=== PATIENT | female | born 1995 | race Caucasian/White ===

== ENCOUNTER 2021-10-11 23:02 | Emergency (ER) | payer MEDICARE, MEDICAID, SELFPAY ==
[2021-10-11 23:06] VITALS: BP 133/76; PULSE 66; RESP 18; TEMP 36.7; O2SAT 99; BMI 23.0
[2021-10-11 23:21] VITALS: BP 133/76; PULSE 72; RESP 17; TEMP 36.8; O2SAT 97
--- NOTE | 2021-10-11 23:35 | XR_ITS ---
PROCEDURE INFORMATION: Exam: XR Left Femur Exam date and time: 10/11/2021 11:35 PM Age: 25 years old Clinical indication: Injury or trauma; Fall; Blunt trauma; Thigh or upper leg; Left; Injury date: 10/09/2021; Additional info: Fall 2 days ago TECHNIQUE: Imaging protocol: XR Left femur. Views: 2 views. COMPARISON: No relevant prior studies available. FINDINGS: Bones/joints: No acute displaced fracture. No dislocation. Soft tissues: Unremarkable. IMPRESSION: No acute findings.
--- NOTE | 2021-10-11 23:35 | XR_ITS ---
PROCEDURE INFORMATION: Exam: XR Right Knee Exam date and time: 10/11/2021 11:35 PM Age: 25 years old Clinical indication: Injury or trauma; Fall; Blunt trauma; Knee; Right; Injury date: 10/09/2021; Additional info: Fall 2 days ago TECHNIQUE: Imaging protocol: XR Right knee. Views: 3 views. COMPARISON: No relevant prior studies available. FINDINGS: Bones/joints: No acute fracture. Possible remote, healed fracture of the fibular neck. No joint effusion. Joint space preserved. Soft tissues: Normal. IMPRESSION: No acute finding.
--- NOTE | 2021-10-11 23:55 | XR_ITS ---
PROCEDURE INFORMATION: Exam: XR Pelvis Exam date and time: 10/11/2021 11:55 PM Age: 25 years old Clinical indication: Injury or trauma; Fall; Blunt trauma (contusions or hematomas); Left; Pelvic region; Injury date: 10/09/2021 TECHNIQUE: Imaging protocol: XR pelvis. Views: 1 or 2 view. COMPARISON: CR XR FEMUR LT 2V 10/11/2021 11:45 PM FINDINGS: Tubes, catheters and devices: Intrauterine device present. Bones/joints: No acute displaced fracture. No dislocation. 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 Nonspecific striated appearance of the pubic symphysis, probably also developmental in nature. Soft tissues: Unremarkable. IMPRESSION: No acute finding.
[2021-10-12] VITALS: BP 127/86; PULSE 78; TEMP 37; O2SAT 98
--- NOTE | 2021-10-12 00:04 | [facility].EDFALL ---
ED Disposition Clinical Impression: Sprain of left hip Qualifiers: Encounter type: initial encounter Qualified Code(s): S73.102A - Unspecified sprain of left hip, initial encounter Thigh contusion Qualifiers: Encounter type: initial encounter Laterality: left Qualified Code(s): S70.12XA - Contusion of left thigh, initial encounter Right knee sprain Qualifiers: Encounter type: initial encounter Involved ligament of knee: unspecified ligament Qualified Code(s): S83.91XA - Sprain of unspecified site of right knee, initial encounter Disposition: Home, Self-Care Condition on Discharge: Good Instructions: DI for Contusion Additional Instructions: wt bearing as maria luisa and see pcp for follow up and use crutches as needed Referrals: Provider,Referral, MD [Primary Care Provider] - - Critical Care Critical Care Time: No Attestation: On 10/11/21, the high probability of a clinically significant, sudden or life threatening deterioration of the following system(s) required my full and direct attention, intervention and personal management. The time I documented below is in addition to time spent performing reported procedures but includes the following listed in this critical care notation. Medical Decision Making - Medical Records Medical records reviewed: Yes: I reviewed the patient's medical records. - Marv Inquiry Pt receiving controlled substance: No Vital Signs: 10/11/21 23:06 10/11/21 23:21 10/12/21 00:00 Temperature 98.1 F 98.2 F 98.6 F Temperature Source Oral Oral Oral Pulse Rate 72 78 Pulse Rate [Apical] 66 Respiratory Rate 18 17 Blood Pressure 133/76 127/86 Blood Pressure [Right Arm] 133/76 Blood Pressure Mean [Right Arm] 95 Blood Pressure Source Automatic Cuff Automatic Cuff Blood Pressure Source [Right Arm] Automatic Cuff Blood Pressure Position Supine Supine Blood Pressure Position [Right Arm] Sitting 02 Sat by Pulse Oximetry 99 97 98 Oxygen Delivery Method Room Air Room Air Room Air 10/12/21 00:31 10/12/21 01:02 Temperature Temperature Source Pulse Rate 76 82 Pulse Rate [Apical] Respiratory Rate Blood Pressure 125/75 127/82 Blood Pressure [Right Arm] Blood Pressure Mean [Right Arm] Blood Pressure Source Automatic Cuff Automatic Cuff Blood Pressure Source [Right Arm] Blood Pressure Position Supine Supine Blood Pressure Position [Right Arm] 02 Sat by Pulse Oximetry 98 94 L Oxygen Delivery Method Room Air Room Air - Lab Data Lab results reviewed: Yes: I reviewed the patient's lab results. - Radiology Data #1 Image(s): Pelvis, Femur, Knee Image Reviewed: Yes I have reviewed radiologist's interpretation Preliminary Findings: No Fracture Seen - CT Data CT Scan: Other (hip) Time Received: 01:[address] Reviewed: Yes: I have viewed the radiologist's interpretation Preliminary Findings: No Fracture Seen Medical Decision Narrative: has no fx but pain will use crutches and advil/tyenol and see pcp Fall HPI - General Chief Complaint: Fall Stated Complaint: AO 2-3 days ago injuryleft upper leg Time Seen by Provider: 10/12/21 00:00 Mode of Arrival: Wheelchair Source of Information: Patient, Medical Record Limitations: Physical Limitations Description of Symptoms (Recalled from ER Triage Doc. by RN): According to mother, two days ago the patient fell in her driveway and injured her right knee and left upper leg. Patient did not inform the mother of the fall. According to mother patient has a history of neurogenic syncope episodes so its not uncommon for her to fall. Patient has been walking on the leg since the fall. Today the patient went on a hike with her family and has since been complaining of left leg pain and told her mother of the fall. Mother wrapped the leg in an leonid wrap and states that there is a dip in the leg. - History of Present Illness HPI Narrative: slip and fall with injury to lt hip and rt knee with ongoing pain and dec wt beari
--- NOTE | 2021-10-12 00:09 | PC.NURSE ---
DR. MANSFIELD IN TO SEE PATIENT.
[2021-10-12 00:31] VITALS: BP 125/75; PULSE 76; O2SAT 98
--- NOTE | 2021-10-12 00:35 | CT_ITS ---
PROCEDURE INFORMATION: Exam: CT Left Lower Extremity Without Contrast, Hip Exam date and time: 10/12/2021 12:35 AM Age: 25 years old Clinical indication: Injury or trauma; Fall; Blunt trauma; Hip; Left; Injury date: 10/09/2021; Additional info: Fall pain left hip TECHNIQUE: Imaging protocol: CT of the Left lower extremity without contrast was performed. Exam focused on the hip. Radiation optimization: All CT scans at this facility use at least one of these dose optimization techniques: automated exposure control; mA and/or kV adjustment per patient size (includes targeted exams where dose is matched to clinical indication); or iterative reconstruction. COMPARISON: CR XR PELVIS 1-2V 10/11/2021 11:49 PM FINDINGS: Bones/joints: No acute fracture. No dislocation. There is residual prominence of the physeal scars throughout the pelvis, atypical, but chronic/developmental in etiology. Soft tissues: Questionable mild contusion in the subcutaneous adipose tissue of the anterolateral mid thigh, not fully visualized. No organized soft tissue hematoma. Mild fat deposition within the proximal rectus femoris muscle compatible with remote injury. Partially visualized intrauterine device. IMPRESSION: 1. No acute fracture. 2. Possible incompletely visualized mild-appearing subcutaneous contusion in the anterolateral mid thigh.
[2021-10-12 01:02] VITALS: BP 127/82; PULSE 82; O2SAT 94
[2021-10-12 01:37] VITALS: BP 121/74; PULSE 80; RESP 18; TEMP 36.8; O2SAT 98
== END 2021-10-12 01:42 | disposition home or self-care (01) ==
PROVIDERS: Emergency Provider Emergency Medicine
DX: S73.102A Unspecified sprain of left hip, initial encounter (principal); S70.12XA Contusion of left thigh, initial encounter; S83.91XA Sprain of unspecified site of right knee, initial encounter; W01.0XXA Fall on same level from slipping, tripping and stumbling without subsequent striking against object, initial encounter; Y92.014 Private driveway to single-family (private) house as the place of occurrence of the external cause
CPT/HCPCS: 72170; 73552; 73562; 73700; 99282

== ENCOUNTER 2022-11-19 15:30 | Outpatient (RCR) | payer MEDICARE, MEDICAID, SELFPAY | END 2022-11-26 13:13 | disposition home or self-care (01) | LOC: PT 15:30 | PROVIDERS: Visit Provider Nurse Practitioner Family | DX: S16.1XXD Strain of muscle, fascia and tendon at neck level, subsequent encounter (principal) | CPT/HCPCS: 97035; 97110; 97140; 97163 ==

== ENCOUNTER 2023-09-07 15:00 | Outpatient (RCR) | payer MEDICARE, MEDICAID, SELFPAY | END 2023-09-13 15:10 | disposition home or self-care (01) | LOC: PT 15:00 | PROVIDERS: Visit Provider Otolaryngology Pediatric Otolaryngology | DX: H90.3 Sensorineural hearing loss, bilateral (principal) | CPT/HCPCS: 97110; 97112; 97163; 97164 ==

== ENCOUNTER 2024-08-05 12:17 | Emergency (ER) | payer MEDICARE, MEDICAID, SELFPAY ==
[2024-08-05 12:38] VITALS: BP 139/79; PULSE 83; RESP 18; TEMP 36.8; O2SAT 99; BMI 27.3
--- NOTE | 2024-08-05 12:58 | ED_ITS ---
Discharge Plan Disposition Patient Disposition: Home, Self-Care Condition: Good Prescriptions Prescriptions: New erythromycin 5 mg/gram (0.5 %) ointment 1 cm ophthalmic (eye) BID 7 Days Qty: 3.5 0RF Rx Instructions: apply to rt eye lid No Action norgestimate-ethinyl estradiol 0.25-35 mg-mcg tablet 0.25 tab PO DAILY montelukast 10 mg tablet 10 mg PO DAILY albuterol sulfate [Ventolin HFA] 90 mcg/actuation HFA aerosol inhaler 90 mcg INHALATION DIRECTED fluticasone furoate-vilanterol [Breo Ellipta] 100-25 mcg/dose blister with device 100 ea INHALATION DIRECTED fluticasone furoate-vilanterol [Breo Ellipta] 100-25 mcg/dose blister with device 100 ea INHALATION DIRECTED Incruse Ellipta 62.5 mcg/actuation blister with device 62.5 mcg INHALATION DIRECTED Gemtesa 75 mg tablet 75 mg PO DAILY Patient Comments: TAKE 1 TABLET BY MOUTH ONCE A DAY Referrals Follow up/Referrals: Robinson Dudley [Primary Care Provider] - See instructions Activity Restrictions/Add. Instructions Additional Instructions/Restrictions: Contact precautions discussed If symptoms worsen or not improved return or see eye doctor Follow-up with PCP Antibiotic as ordered Clinical Impressions Clinical Impression: Conjunctivitis Instructions Patient Instructions: DI for Conjunctivitis Print Language Print Language: Tamazight Discharge ED Provider: Penny ([facility])Stephanie [facility] HPI General Stated complaint: right eye red and swollen Mode of Arrival: Ambulatory Source of Information: Patient and Parent(s) Time Seen by Provider: 08/05/24 12:59 Description of Symptoms (Recalled from Triage Doc. by RN): RIGHT EYE SWOLLEN AND RED HEENT Symptoms (Recalled from RN notes): Yes Resp Symptoms (Recalled from RN notes): No Skin Symptoms (Recalled from RN notes): No MS Symptoms (Recalled from RN notes): No Functional Status (Recalled from RN notes): WNL History of Present Illness Provider Complaint: 28-year-old female presents for redness and drainage to right eye. Patient states when she woke up this morning her eye was crusted over and she has to keep clearing out drainage. No injury noted Related Data Home Medications ?Medication ?Instructions ?Recorded ?Confirmed albuterol sulfate 90 mcg/actuation 90 mcg inhalation DIRECTED 08/05/24 08/05/24 aerosol inhaler (Ventolin HFA) fluticasone furoate 100 100 ea inhalation DIRECTED 08/05/24 08/05/24 mcg-vilanterol 25 mcg/dose inhalation powder (Breo Ellipta) fluticasone furoate 100 100 ea inhalation DIRECTED 08/05/24 08/05/24 mcg-vilanterol 25 mcg/dose inhalation powder (Breo Ellipta) montelukast 10 mg tablet 10 mg PO DAILY 08/05/24 08/05/24 norgestimate 0.25 mg-ethinyl 0.25 tab PO DAILY 08/05/24 08/05/24 estradiol 35 mcg tablet umeclidinium 62.5 mcg/actuation 62.5 mcg inhalation DIRECTED 08/05/24 08/05/24 blister powder for inhalation (Incruse Ellipta) vibegron 75 mg tablet (Gemtesa) 75 mg PO DAILY 08/05/24 08/05/24 Previous Rx's ?Medication ?Instructions ?Recorded erythromycin 5 mg/gram (0.5 %) eye 1 cm ophthalmic (eye) BID 7 days 08/05/24 ointment #3.5 grams Allergies Allergy/AdvReac Type Severity Reaction Status Date / Time clindamycin Allergy Verified 10/11/21 23:24 Worker's Comp Is this a Worker's Comp case?: No [facility] Disclaimer: The information contained in this section may have been updated after the patient was seen, as this information can be updated by other users. 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 Social History , [employer]) Smoking Status: Never smoker alcohol intake: never current occupational status: student Travel in the last 8 weeks: None ROS Obtained: Yes Systems reviewed as appropriate & no additional complaints except as documented Eyes Eyes: Reports system reviewed and no additional complaints, except as documented, Reports as per HPI and Reports eye discharge Physical Exam General General appearance: alert and in no apparent distress Eye Eye exam: Present PERRL, conjunctival redness, conjunctival injection and discharge Respiratory Respiratory exam: Present normal lung sounds bilaterally Cardiovascular Cardiovascular exam: Present regular rate and normal rhythm Neurological Exam Neurological exam: Present alert and oriented X3 Skin Skin exam: Present warm Medical Decision Making Medical Records Medical records reviewed: Yes I reviewed the patient's medical records. Screening: Per USPSTF and CDC recommendations, given the prevalence of disease in our region, it is our hospital?s policy to screen for HIV and viral Hepatitis for all patients aged 18 and over and those with ongoing risk factors. Marv Inquiry Pt receiving controlled substance: No Marv was queried for this patient: No Vital Signs: 08/05/24 12:38 Temperature 98.2 F Temperature Source Oral Pulse Rate [Left Brachial] 83 Respiratory Rate 18 Blood Pressure [Left Arm] 139/79 Blood Pressure Mean [Left Arm] 99 02 Sat by Pulse Oximetry 99
[2024-08-05 13:09] VITALS: BP 139/79; PULSE 83; RESP 20; TEMP 36.8
== END 2024-08-05 13:10 | disposition home or self-care (01) ==
PROVIDERS: Emergency Provider Nurse Practitioner Family; PCP Family Medicine
DX: H10.9 Unspecified conjunctivitis (principal)
CPT/HCPCS: 99213; G0381

== ENCOUNTER 2024-08-06 15:00 | Emergency (ER) | payer MEDICARE, MEDICAID, SELFPAY ==
[2024-08-06 15:01] VITALS: BP 164/77; PULSE 108; RESP 16; TEMP 36.7; O2SAT 96; BMI 28.0
--- NOTE | 2024-08-06 15:02 | ED_ITS ---
Discharge Plan Disposition Patient Disposition: Xfer Short-Term Hosp Condition: Serious Prescriptions Prescriptions: No Action norgestimate-ethinyl estradiol 0.25-35 mg-mcg tablet 0.25 tab PO DAILY montelukast 10 mg tablet 10 mg PO DAILY albuterol sulfate [Ventolin HFA] 90 mcg/actuation HFA aerosol inhaler 90 mcg INHALATION DIRECTED fluticasone furoate-vilanterol [Breo Ellipta] 100-25 mcg/dose blister with device 100 ea INHALATION DIRECTED fluticasone furoate-vilanterol [Breo Ellipta] 100-25 mcg/dose blister with device 100 ea INHALATION DIRECTED Incruse Ellipta 62.5 mcg/actuation blister with device 62.5 mcg INHALATION DIRECTED Gemtesa 75 mg tablet 75 mg PO DAILY Patient Comments: TAKE 1 TABLET BY MOUTH ONCE A DAY erythromycin 5 mg/gram (0.5 %) ointment 1 cm ophthalmic (eye) BID 7 Days Qty: 3.5 0RF Rx Instructions: apply to rt eye lid sulfacetamide sodium 10 % drops 1 drp ophthalmic (eye) Q3H 7 Days Qty: 15 0RF Referrals Follow up/Referrals: Robinson Dudley [Primary Care Provider] - See instructions Activity Restrictions/Add. Instructions Additional Instructions/Restrictions: Patient to be transferred to the [facility] ER care of Dr. Francois Clinical Impressions Clinical Impression: Ankit's angina syndrome Stand Alone Forms Stand Alone Forms: Transfer Record - ED Instructions Patient Instructions: DI for Skin Abscess Print Language Print Language: Sinhala Discharge ED Provider: David Grider General Adult HPI <CHANDU Newsome - Last Filed: 08/06/24 17:32> General Chief complaint: Skin/Abscess/Foreign Body Stated complaint: Allergic reaction Time Seen by Provider: 08/06/24 15:02 History of Present Illness HPI narrative: Patient presents for evaluation of right neck pain. 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 Most recently however she was treated approximately a week ago for a left otitis media and has had good resolution, yesterday she was treated for reported pinkeye and was given a prescription for sulfacetamide eyedrops. This morning mom states that she awoke and her eye appears subjectively better however she is had right facial flushing and a fullness in the right submandibular area that is extraordinarily painful crop up overnight. Patient has trismus but is able to open her mouth, she has no itching no chest pain no shortness of breath no swelling of the mucous membranes. She denies fever chills hemoptysis hematochezia melena hematemesis but reports difficulty with swallowing as it hurts to swallow . Related Data Home Medications ?Medication ?Instructions ?Recorded ?Confirmed albuterol sulfate 90 mcg/actuation 90 mcg inhalation DIRECTED 08/05/24 08/05/24 aerosol inhaler (Ventolin HFA) fluticasone furoate 100 100 ea inhalation DIRECTED 08/05/24 08/05/24 mcg-vilanterol 25 mcg/dose inhalation powder (Breo Ellipta) fluticasone furoate 100 100 ea inhalation DIRECTED 08/05/24 08/05/24 mcg-vilanterol 25 mcg/dose inhalation powder (Breo Ellipta) montelukast 10 mg tablet 10 mg PO DAILY 08/05/24 08/05/24 norgestimate 0.25 mg-ethinyl 0.25 tab PO DAILY 08/05/24 08/05/24 estradiol 35 mcg tablet umeclidinium 62.5 mcg/actuation 62.5 mcg inhalation DIRECTED 08/05/24 08/05/24 blister powder for inhalation (Incruse Ellipta) vibegron 75 mg tablet (Gemtesa) 75 mg PO DAILY 08/05/24 08/05/24 Previous Rx's ?Medication ?Instructions ?Recorded erythromycin 5 mg/gram (0.5 %) eye 1 cm ophthalmic (eye) BID 7 days 08/05/24 ointment #3.5 grams sulfacetamide sodium 10 % eye drops 1 drp ophthalmic (eye) Q3H 7 days 08/05/24 #15 mL Allergies Allergy/AdvReac Type Severity Reaction Status Date / Time amphetamine [From Adderall] Allergy Unknown Verified 08/06/24 17:54 allergy reaction atomoxetine [From Strattera] Allergy Unknown Verified 08/06/24 17:54 allergy reaction azithromycin Allergy Unknown Verified 08/06/24 17:54 allergy reaction clindamycin Allergy Unknown Verified 08/06/24 17:54 allergy reaction dextroamphetamine Allergy Unknown Verified 08/06/24 17:54 [From Adderall] allergy reaction PFSH <Bill Solen, PA - Last Filed: 08/06/24 17:32> [facility] Disclaimer: The information contained in this section may have been updated after the patient was seen, as this information can be updated by other users. Medical History , [employer] ENGINEER) Kabuki syndrome Social History (Updated 08/05/24 @ 13:06 by Stephanie Francis ([facility]), MI[employer]LECTRONICS ENGINEER) Smoking Status: Never smoker alcohol intake: never current occupational status: student Travel in the last 8 weeks: None Other Medical History Have you received the Flu Vaccine for this season: No Have you received the Pneumonia Vaccine: No <CHANDU Newsome - Last Filed: 08/06/24 17:32> ROS Obtained: Yes Systems reviewed as appropriate & no additional complaints except as documented Physical Exam <CHANDU Newsome - Last Filed: 08/06/24 17:32> General General appearance: alert and in no apparent distress Neck Neck exam: Present lymphadenopathy Respiratory Respiratory exam: Present normal lung sounds bilaterally Cardiovascular Cardiovascular exam: Present tachycardia Neurological Exam Neurological exam: Present alert and oriented X3 Medical Decision Making <CHANDU Newsome - Last Filed: 08/06/24 17:32> Medical Records Medical records reviewed: Yes I reviewed the patient's medical records. Screening: Per USPSTF and CDC recommendations, given the prevalence of disease in our region, it is our hospital?s policy to screen for HIV and viral Hepatitis for all patients aged 18 and over and those with ongoing risk factors. Marv Inquiry Pt receiving controlled substance: No Vital Signs: 08/06/24 15:01 08/06/24 15:30 08/06/24 16:00 Temperature 98.1 F Temperature Source Oral Pulse Rate 88 87 Pulse Rate [Radial] 108 H Respiratory Rate 16 Blood Pressure 128/79 122/74 Blood Pressure [Right Arm] 164/77 H Blood Pressure Mean 93 89 Blood Pressure Mean [Right Arm] 106 Blood Pressure Source [Right Arm] Automatic Cuff Blood Pressure Position [Right Arm] Sitting 02 Sat by Pulse Oximetry 96 98 97 Oxygen Delivery Method Room Air Room Air Room Air Lab Data Lab results reviewed: Yes I reviewed the patient's lab results. Lab Results 08/06/24 15:40: WBC 16.1 H, RBC 4.88, Hgb 14.1, Hct 41.2, MCV 84.4, MCH 29.0, MCHC 34.3, RDW 14.5, Plt Count 215, MPV 8.1, Neut % (Auto) 84.5 H, Lymph % (Auto) 9.9 L, [place] % (Auto) 5.2, Eos % (Auto) 0.1, Baso % (Auto) 0.3, Neut # (Auto) 13.6 H, Lymph # (Auto) 1.6, [place] # (Auto) 0.8, Eos # (Auto) 0.0, Baso # (Auto) 0.1, Total Counted 100, Neutrophils % (Manual) 84 H, Lymphocytes % (Manual) 10, Monocytes % (Manual) 6, Platelet Estimate Normal, Polychromasia 1+, Hypochromasia 1+, Anisocytosis 1+, Microcytosis 1+, Sodium 136, Potassium 3.7, Chloride 106, Carbon Dioxide 25, Anion Gap 8.7, BUN 6 L, Creatinine 0.50 L, Estimated Creat Clear 167, Estimated GFR 147, Est GFR ( Amer) 178, G lucose 115 H, Calcium 9.4, Total Bilirubin 0.8, AST 35, ALT 55, Alkaline Phosphatase 68, Total Protein 6.9, Albumin 4.1, Globulin 2.8, Albumin/Globulin Ratio 1.5, Serum HCG, Qual Negative, HIV 1&2 Antibody Rapid Nonreactive 08/06/24 16:00: Lactate 0.8 08/06/24 15:40 08/06/24 15:40 Orders (Tests/Meds): ED MEDICATIONS Generic Name Dose Route Start Last Admin Trade Name Freq PRN Reason Stop Dose Admin Vancomycin/PEG/NADA/Lysine/Water 1.5 gm in 300 mls @ 150 mls/hr 08/06/24 16:15 08/06/24 17:20 Vancomycin 1.5gm/300ml (Peg) Premix IV 08/06/24 18:14 150 mls/hr ONCE ONE Administration Miscellaneous 1 each 08/06/24 16:00 08/06/24 16:48 Vancomycin Consult Request NOTAPPLIC 09/05/24 15:59 1 each CONSULT PHARMACY [facility] Administration Discontinued Medications Generic Name Dose Route Start Last Admin Trade Name Freq PRN Reason Stop Dose Admin Acetaminophen 1,000 mg 08/06/24 15:11 08/06/24 15:39 Acetaminophen 1,000mg/100ml Vial IV 08/06/24 15:12 1,000 mg ONCE ONE Administration Lactated Ringer's 1,000 mls @ 999 mls/hr 08/06/24 15:11 08/06/24 15:39 Lactated Ringer's 1000 Ml Bag IV 08/06/24 16:11 999 mls/hr .Q1H1M ONE Administration Ampicillin Sodium/Sulbactam 100 mls @ 200 mls/hr 08/06/24 15:55 08/06/24 16:57 Sodium 3 gm/ Sodium Chloride IV 08/06/24 15:56 Not Given ONCE ONE Ampicillin Sodium/Sulbactam 100 mls @ 200 mls/hr 08/06/24 16:48 08/06/24 16:49 Sodium 3 gm/ Sodium Chloride IV 08/06/24 16:49 200 mls/hr ONCE ONE Administration Iopamidol 75 ml 08/06/24 16:29 08/06/24 16:30 Iopamidol-370 (76%);100ml Bottle IV 08/06/24 16:30 75 ml ONCE ONE Administration Ketorolac Tromethamine 15 mg 08/06/24 15:11 08/06/24 15:39 Ketorolac 30mg/Ml Vial IV 08/06/24 15:12 15 mg ONCE ONE Administration Morphine Sulfate 4 mg 08/06/24 15:55 08/06/24 16:47 Morphine 4mg/Ml Syringe IV 08/06/24 15:56 4 mg ONCE ONE Administration Ondansetron HCl 4 mg 08/06/24 16:44 08/06/24 16:47 Ondansetron 4mg/2ml Vial IV 08/06/24 16:45 4 mg ONCE ONE Administration Promethazine HCl 12.5 mg 08/06/24 17:45 08/06/24 17:54 Promethazine Hcl 25mg/Ml 1ml Vial IV 08/06/24 17:46 12.5 mg ONCE ONE Administration Sodium Chloride 10 ml 08/06/24 16:29 08/06/24 16:29 Sodium Chloride 0.9% 10ml Syr (Rad Only) IV 08/06/24 16:30 10 ml ONCE ONE Administration Sodium Chloride 25 ml 08/06/24 17:45 08/06/24 17:54 Sodium Chloride 0.9% 25ml Bag IV 08/06/24 17:46 25 ml ONCE ONE Administration ORDERS Category Date Time Status CT soft tissue neck w con Stat Cat Scan 08/06/24 15:11 Taken POCUS Point of Care (ER Only) Stat Exams 08/06/24 15:14 Ordered CBC w/Auto Diff [Complete Blood Count Auto Diff] Stat Lab 08/06/24 15:40 Completed CMP [Comprehensive Metabolic Panel] Stat Lab 08/06/24 15:40 Completed HCG Qualitative, Serum Stat Lab 08/06/24 15:40 Completed HIV (1&2) Antibody Rapid Stat Lab 08/06/24 15:40 Completed Hep C Ab with Reflex to RNA Stat Lab 08/06/24 15:40 Received Lactic Acid Stat Lab 08/06/24 16:00 Completed Rapid Strep Scrn Group A [Strep Scrn Group A (Rapid)] Lab 08/06/24 15:16 Ordered Stat Blood Culture Stat Micro 08/06/24 16:00 Received Tissue Perfus/Sepsis Re-Eval Sepsis Re-Evaluation Performed: No Date Performed: 08/06/24 Time Performed: 17:17 Medical Decision Narrative: In summary patient is a 28-year-old female who presents to the emergency department for evaluation of right neck pain and swelling. Patient is normotensive with a blood pressure of 164/77 with a heart rate of 108 satting at 96% on room air breathing 16 times a minute upon arrival, afebrile at 98.1. Physical exam is remarkable for right eye conjunctival swelling along with periorbital redness but no induration or edema, no purulent appearing discharge, patient has a flushed right cheek however her oropharynx is normal with no posterior exudate or swelling, patient has right-sided deviation upon tongue protrusion, patient has swelling that is very firm in the right submandibular area that is very tender to palpation. No palpable lymphadenopathy.. Differential diagnosis includes Ankit's angina versus sialadenitis versus lymphadenopathy etc. Initial workup will be conducted with hematologic labs POCUS CT scan of the neck with contrast. Initial interventions include crystalloid bolus Tylenol Toradol. Initial workup reviewed by me shows a leukocytosis with left shift, POCUS shows concern for submandibular cellulitis and my informal interpretation of her CT imaging concurs consistent with probable Ankit's angina. Upon repeat evaluation patient again and still has no airway compromise as well as tolerating secretions and oral intake. Given this I had an interactive discussion with [facility] transfer center and patient has been accepted for transfer to the [facility] ER in care of Dr. Francois <David Grider MD - Last Filed: 08/06/24 18:03> Vital Signs: 08/06/24 15:01 08/06/24 15:30 08/06/24 16:00 Temperature 98.1 F Temperature Source Oral Pulse Rate 88 87 Pulse Rate [Radial] 108 H Respiratory Rate 16 Blood Pressure 128/79 122/74 Blood Pressure [Right Arm] 164/77 H Blood Pressure Mean 93 89 Blood Pressure Mean [Right Arm] 106 Blood Pressure Source [Right Arm] Automatic Cuff Blood Pressure Position [Right Arm] Sitting 02 Sat by Pulse Oximetry 96 98 97 Oxygen Delivery Method Room Air Room Air Room Air Lab Data Lab Results 08/06/24 15:40: WBC 16.1 H, RBC 4.88, Hgb 14.1, Hct 41.2, MCV 84.4, MCH 29.0, MCHC 34.3, RDW 14.5, Plt Count 215, MPV 8.1, Neut % (Auto) 84.5 H, Lymph % (Auto) 9.9 L, [place] % (Auto) 5.2, Eos % (Auto) 0.1, Baso % (Auto) 0.3, Neut # (Auto) 13.6 H, Lymph # (Auto) 1.6, [place] # (Auto) 0.8, Eos # (Auto) 0.0, Baso # (Auto) 0.1, Total Counted 100, Neutrophils % (Manual) 84 H, Lymphocytes % (Manual) 10, Monocytes % (Manual) 6, Platelet Estimate Normal, Polychromasia 1+, Hypochromasia 1+, Anisocytosis 1+, Microcytosis 1+, Sodium 136, Potassium 3.7, Chloride 106, Carbon Dioxide 25, Anion Gap 8.7, BUN 6 L, Creatinine 0.50 L, Estimated Creat Clear 167, Estimated GFR 147, Est GFR ( Amer) 178, G lucose 115 H, Calcium 9.4, Total Bilirubin 0.8, AST 35, ALT 55, Alkaline Phosphatase 68, Total Protein 6.9, Albumin 4.1, Globulin 2.8, Albumin/Globulin Ratio 1.5, Serum HCG, Qual Negative, HIV 1&2 Antibody Rapid Nonreactive 08/06/24 16:00: Lactate 0.8 Orders (Tests/Meds): ED MEDICATIONS Generic Name Dose Route Start Last Admin Trade Name Freq PRN Reason Stop Dose Admin Vancomycin/PEG/NADA/Lysine/Water 1.5 gm in 300 mls @ 150 mls/hr 08/06/24 16:15 08/06/24 17:20 Vancomycin 1.5gm/300ml (Peg) Premix IV 08/06/24 18:14 150 mls/hr ONCE ONE Administration Miscellaneous 1 each 08/06/24 16:00 08/06/24 16:48 Vancomycin Consult Request NOTAPPLIC 09/05/24 15:59 1 each CONSULT PHARMACY [facility] Administration Discontinued Medications Generic Name Dose Route Start Last Admin Trade Name Freq PRN Reason Stop Dose Admin Acetaminophen 1,000 mg 08/06/24 15:11 08/06/24 15:39 Acetaminophen 1,000mg/100ml Vial IV 08/06/24 15:12 1,000 mg ONCE ONE Administration Lactated Ringer's 1,000 mls @ 999 mls/hr 08/06/24 15:11 08/06/24 15:39 Lactated Ringer's 1000 Ml Bag IV 08/06/24 16:11 999 mls/hr .Q1H1M ONE Administration Ampicillin Sodium/Sulbactam 100 mls @ 200 mls/hr 08/06/24 15:55 08/06/24 16:57 Sodium 3 gm/ Sodium Chloride IV 08/06/24 15:56 Not Given ONCE ONE Ampicillin Sodium/Sulbactam 100 mls @ 200 mls/hr 08/06/24 16:48 08/06/24 16:49 Sodium 3 gm/ Sodium Chloride IV 08/06/24 16:49 200 mls/hr ONCE ONE Administration Iopamidol 75 ml 08/06/24 16:29 08/06/24 16:30 Iopamidol-370 (76%);100ml Bottle IV 08/06/24 16:30 75 ml ONCE ONE Administration Ketorolac Tromethamine 15 mg 08/06/24 15:11 08/06/24 15:39 Ketorolac 30mg/Ml Vial IV 08/06/24 15:12 15 mg ONCE ONE Administration Morphine Sulfate 4 mg 08/06/24 15:55 08/06/24 16:47 Morphine 4mg/Ml Syringe IV 08/06/24 15:56 4 mg ONCE ONE Administration Ondansetron HCl 4 mg 08/06/24 16:44 08/06/24 16:47 Ondansetron 4mg/2ml Vial IV 08/06/24 16:45 4 mg ONCE ONE Administration Promethazine HCl 12.5 mg 08/06/24 17:45 08/06/24 17:54 Promethazine Hcl 25mg/Ml 1ml Vial IV 08/06/24 17:46 12.5 mg ONCE ONE Administration Sodium Chloride 10 ml 08/06/24 16:29 08/06/24 16:29 Sodium Chloride 0.9% 10ml Syr (Rad Only) IV 08/06/24 16:30 10 ml ONCE ONE Administration Sodium Chloride 25 ml 08/06/24 17:45 08/06/24 17:54 Sodium Chloride 0.9% 25ml Bag IV 08/06/24 17:46 25 ml ONCE ONE Administration ORDERS Category Date Time Status CT soft tissue neck w con Stat Cat Scan 08/06/24 15:11 Taken POCUS Point of Care (ER Only) Stat Exams 08/06/24 15:14 Ordered CBC w/Auto Diff [Complete Blood Count Auto Diff] Stat Lab 08/06/24 15:40 Completed CMP [Comprehensive Metabolic Panel] Stat Lab 08/06/24 15:40 Completed HCG Qualitative, Serum Stat Lab 08/06/24 15:40 Completed HIV (1&2) Antibody Rapid Stat Lab 08/06/24 15:40 Completed Hep C Ab with Reflex to RNA Stat Lab 08/06/24 15:40 Received Lactic Acid Stat Lab 08/06/24 16:00 Completed Rapid Strep Scrn Group A [Strep Scrn Group A (Rapid)] Lab 08/06/24 15:16 Ordered Stat Blood Culture Stat Micro 08/06/24 16:00 Received Medical Decision Narrative: In summary patient is a 28-year-old female who presents to the emergency department for evaluation of right neck pain and swelling. Patient is normotensive with a blood pressure of 164/77 with a heart rate of 108 satting at 96% on room air breathing 16 times a minute upon arrival, afebrile at 98.1. Physical exam is remarkable for right eye conjunctival swelling along with periorbital redness but no induration or edema, no purulent appearing discharge, patient has a flushed right cheek however her oropharynx is normal with no posterior exudate or swelling, patient has right-sided deviation upon tongue protrusion, patient has swelling that is very firm in the right submandibular area that is very tender to palpation. No palpable lymphadenopathy.. Differential diagnosis includes Ankit's angina versus sialadenitis versus lymphadenopathy etc. Initial workup will be conducted with hematologic labs POCUS CT scan of the neck with contrast. Initial interventions include crystalloid bolus Tylenol Toradol. Initial workup reviewed by me shows a leukocytosis with left shift, POCUS shows concern for submandibular cellulitis and my informal interpretation of her CT imaging concurs consistent with probable Ankit's angina. Upon repeat evaluation patient again and still has no airway compromise as well as tolerating secretions and oral intake. Given this I had an interactive discussion with [facility] transfer center and patient has been accepted for transfer to the [facility] ER in care of Dr. Alessandro Grider: I independently interviewed and examined patient. I am primarily clinically concerned for submental cellulitis/abscess with clinical presentation consistent with Ankit's angina. Patient given empiric Unasyn and vancomycin. Bedside [id number] ultrasound performed shortly after arrival and patient has submental cellulitis, no evidence of soft tissue fluid collection concerning for abscess. No stridor, meningismus, range of motion of neck difficulties. Patient tolerating secretions, flexion and extension of neck normal. She does have trismus on the right. Palate is symmetric, no evidence of uvular deviation. She does have elevation of the floor mouth on the right side without significant induration under the tongue. No stridor, bruit, lymphadenopathy. Does not appear to extend down into the chest. Cardiopulmonary exam within normal limits. Workup significant for leukocytosis of 20,000 with neutrophilia. Lactate normal. Sodium normal. CT neck with concern for cellulitis of the neck and submental region with soft tissue mass effect and leftward deviation of tongue. No definitive abscess on CT on independent interpretation. See radiology read for further definitive read. Patient given fluids, nausea medications. [facility] was contacted and case was discussed at length, graciously excepted by Dr. Francois. David Grider MD Procedures <David rGider MD - Last Filed: 08/06/24 18:03> Limited Ultrasound Indication:: Limited soft tissue ultrasound Indication: Soft tissue swelling of the face and submandibular area Identified structures: Location: Soft tissue face and jaw Findings: Cellulitis without abscess submandibular area on the right with associated lymphadenopathy Impression: Cellulitis with lymphadenopathy submandibular region on the right Images were saved to permanent archive The study was technically adequate Soft Tissue CPT Codes: CPT Neck: 96889-58 CPT Upper extremity: 56000-78 CPT Axilla: 09001-36 CPT Chest wall: 43525-45 CPT Breast: 16253-00-ED/LT (complete), 47691-31-WA/LT (limited), CPT Upper Back: 16182-77 CPT Lower Back: 16909-13 CPT Abdominal Wall: 29017-16 CPT Pelvic Wall: 16416-84 CPT Lower Extremity: 98548-30 CPT Other Soft Tissue: 29285-51 This study was performed by me, and I personally interpreted all images/videos. Based on my clinical judgement, these images were adequate and did not necessitate further imaging. Critical Care <CHANDU Newsome - Last Filed: 08/06/24 17:32> Critical Care Time Critical Care Time: No <David Grider MD - Last Filed: 08/06/24 18:03> Critical Care Time Critical Care Time: Yes (Infectious disease) Attestation: On 08/06/24, the high probability of a clinically significant, sudden or life threatening deterioration of the following system(s) required my full and direct attention, intervention and personal management. The time I documented below is in addition to time spent performing reported procedures but includes the following listed in this critical care notation. Total Time Total Critical Care Time: 45
--- NOTE | 2024-08-06 15:11 | CT_ITS ---
PROCEDURE INFORMATION: Exam: CT Neck With Contrast Exam date and time: 08/06/2024 4:31 PM Age: 28 years old Clinical indication: Mass, lump, or swelling in neck; Right; Additional info: Trismus, right submandibular mass TECHNIQUE: Imaging protocol: Computed tomography of the neck with contrast. Radiation optimization: All CT scans at this facility use at least one of these dose optimization techniques: automated exposure control; mA and/or kV adjustment per patient size (includes targeted exams where dose is matched to clinical indication); or iterative reconstruction. Contrast material: ISOVUE; Contrast volume: 75 ml; Contrast route: IV; COMPARISON: No relevant prior studies available. FINDINGS: Brain: No acute intracranial findings. Orbital cavities: No acute intraorbital findings. Paranasal sinuses: Mucosal thickening in the left maxillary and anterior ethmoid sinuses suggesting mild chronic sinus inflammatory disease. No fluid levels. The other paranasal sinuses are clear. Mastoid air cells: Left mastoid air cells are clear. Prior right mastoidectomy with cochlear implant. No gross hardware complication. 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 No evidence of mastoiditis or CSF leak. Salivary glands: The parotid glands are unremarkable. Right submandibular gland is mildly enlarged and edematous in appearance with moderate surrounding stranding/edema in the submandibular space, suggesting sialoadenitis. No abscess. No ductal dilatation or sialolithiasis. Left submandibular gland is normal. Pharynx: The parapharyngeal spaces are unremarkable. The nasopharynx is unremarkable. The oropharynx is unremarkable. The hypopharynx is unremarkable. Prevertebral and retropharyngeal spaces: Unremarkable. Larynx: Normal epiglottis. Visualized larynx is unremarkable. Thyroid: The visualized thyroid gland is unremarkable. Trachea: The visualized trachea is unremarkable. Lungs: 5 mm calcified granuloma in the peripheral left pulmonary apex. 5 mm pulmonary nodule in the lateral right upper lobe coronal image 39. If patient does not have known cancer, follow up should be based on clinical information because of the low risk of cancer in this age group. (Nichelle et al., Fleischner Society, 2017). Esophagus: The visualized proximal esophagus is unremarkable. Lymph nodes: Enlarged right level 1B nodes. Vasculature: No gross vascular abnormalities are appreciated. Bones/joints: No acute osseous findings. Rightward half of the C1 posterior ring is absent, most likely congenital or possibly remote postsurgical, correlate with operative history. TMJs are well aligned. The infratemporal fossae and wool scourer spaces are unremarkable. Soft tissues: No hematoma. Other findings: No foreign body. IMPRESSION: 1. Right sialoadenitis. No abscess or ductal dilatation. No sialolithiasis. 2. Enlarged right level 1B nodes. 3. There is a 5 mm pulmonary nodule in the right upper lobe. Please see recommendations above. 4. Prior right cochlear implant without gross hardware complication. 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 No evidence of mastoiditis or CSF leak. 5. Additional nonemergent findings detailed above.
[2024-08-06 15:30] VITALS: BP 128/79; PULSE 88; O2SAT 98
[2024-08-06] MEDS: LACTATED RINGERS 1000ML 1,000 ML 999 ML IV (15:39)
[2024-08-06] MEDS: KETOROLAC 30MG/ML VIAL 15 MG IV (15:39)
[2024-08-06] MEDS: ACETAMINOPHEN 1,000MG/100ML VIAL 1000 MG IV (15:39)
[2024-08-06 16:00] VITALS: BP 122/74; PULSE 87; O2SAT 97
[2024-08-06 16:05] LABS: Basophils # 0.1 K/mm3 (0-0.2); Basophils % 0.3 % (0.1-2.0); Eosinophils % 0.1 % (0.1-12.0); Hematocrit 41.2 % (37.0-47.0); Hemoglobin 14.1 g/dL (12.2-16.2); Lymphocytes # 1.6 K/mm3 (0.7-4.5); Lymphocytes % 9.9 % (10-50); Mean Corpuscular HGB Conc 34.3 g/dL (31.8-35.4); Mean Corpuscular Volume 84.4 fl (81-99); Mean Platelet Volume 8.1 fl (7.4-10.4); Monocytes # 0.8 K/mm3 (0.1-1.0); Monocytes % 5.2 % (1.7-9.3); Neutrophils # 13.6 K/mm3 (1.8-7.8); Neutrophils % 84.5 % (37.0-80.0); Platelet Count 215 K/mm3 (142-424); Red Blood Count 4.88 M/mm3 (4.20-5.40); Red Cell Distribution Width 14.5 % (11.5-17.5); White Blood Count 16.1 K/mm3 (4.8-10.8)
[2024-08-06 16:10] LABS: MANUAL DIFFERENTIAL MANUAL DIFFERENTIAL (MANUAL DIFF)
[2024-08-06 16:13] LABS: Alanine Aminotransferase 55 U/L (12-78); Albumin Level 4.1 g/dl (3.5-5.0); Albumin/Globulin Ratio 1.5 (1.1-1.8); Alkaline Phosphatase 68 U/L (38-126); Anion Gap 8.7 mEq/L (5-15); Aspartate Amino Transferase 35 U/L (14-36); Bilirubin,Total 0.8 mg/dl (0.2-1.3); Blood Urea Nitrogen 6 mg/dl (7-17); Calcium 9.4 mg/dl (8.4-10.2); Carbon Dioxide 25 mmol/L (22.0-30.0); Chloride 106 mmol/L (98-107); Creatinine Clearance Estimated 167 mL/min (50-200); Estimated Glomerular Filt Rate 147 ml/min (>60); GFR (African American) 178 ML/MIN (>60); Globulin 2.8 g/dL (1.3-3.2); Glucose 115 mg/dl (74-100); Potassium 3.7 mmoL/L (3.5-5.1); Sodium 136 mmol/L (136-145); Total Protein,Serum 6.9 g/dl (6.3-8.2)
[2024-08-06 16:16] LABS: HCG Qualitative, Serum Negative (Negative)
[2024-08-06 16:27] LABS: Lactic Acid 0.8 mmol/L (0.7-2.1)
[2024-08-06] MEDS: SODIUM CHLORIDE 0.9% 10ML SYR (RAD ONLY) 10 ML IV (16:29)
[2024-08-06] MEDS: IOPAMIDOL-370 (76%);100ML BOTTLE 75 ML IV (16:30)
[2024-08-06 16:36] LABS: Lymphocytes % 10 % (10-50); Monocytes % 6 % (2-9); Neutrophils % 84 % (42-76); Total Cells Counted 100
[2024-08-06 16:37] LABS: Anisocytosis 1+; Hypochromasia 1+; Microcytosis 1+; Platelet Estimate Normal; Polychromasia 1+
[2024-08-06] MEDS: MORPHINE 4MG/ML SYRINGE 4 MG IV (16:47)
[2024-08-06] MEDS: ONDANSETRON 4MG/2ML VIAL 4 MG IV (16:47)
[2024-08-06] MEDS: VANCOMYCIN CONSULT REQUEST 1 EACH NOTAPPLIC (16:48)
[2024-08-06] MEDS: AMPICILLIN SODIUM/SULBACTAM 3 GM in 0.9 % SODIUM CHLORIDE 100 ML IV (16:49)
--- NOTE | 2024-08-06 17:14 | PC.NURSE ---
Called [facility] to transfer patient per Dr. Grider. [facility] stated that they would give us a call back.
[2024-08-06] MEDS: VANCOMYCIN/WATER FOR INJ (PEG) 1.5 GM/300 ML PIGGYBACK IV (17:20)
[2024-08-06 17:37] LABS: HIV (1&2) Antibody Rapid NONREACTIVE (NONREACTIVE)
--- NOTE | 2024-08-06 17:40 | PC.NURSE ---
Report given to JUAN Figueroa at [facility].
--- NOTE | 2024-08-06 17:53 | PC.NURSE ---
[facility] NOTIFIED OF TRANSFER
[2024-08-06] MEDS: PROMETHAZINE HCL 25MG/ML 1ML VIAL 12.5 MG IV (17:54)
[2024-08-06] MEDS: SODIUM CHLORIDE 0.9% 25ML BAG 25 ML IV (17:54)
[2024-08-06 18:51] VITALS: BP 122/74; PULSE 87; RESP 16; TEMP 36.7; O2SAT 97
[2024-08-08 08:59] LABS: HCV Ab Non Reactive (Non Reactive)
== END 2024-08-06 18:52 | disposition short-term general hospital (02) ==
PROVIDERS: Physician Assistant; Emergency Provider Emergency Medicine; PCP Family Medicine
DX: M54.2 Cervicalgia (principal); R13.10 Dysphagia, unspecified; K12.2 Cellulitis and abscess of mouth; Q89.8 Other specified congenital malformations
CPT/HCPCS: 70491; 80053; 83605; 84703; 85007; 85025; 86803; 87040; 87389; 96361; 96374; 96375; 99291; J0131; J0295; J1885; J2270; J2405; J2550; J7120; Q9967